=== PATIENT | female | born 1995 | race African-American/Black ===

== ENCOUNTER 2017-03-05 04:31 | Emergency (ER) | payer SELFPAY ==
[~2017-03-05] VITALS: Ht 165.1 cm; Wt 55.3 kg
[~2017-03-05 04:31] MED LIST: RANITIDINE HCL150 MG ORAL
[2017-03-05 04:44] VITALS: BP 123/55
--- NOTE | 2017-03-05 04:59 | Emergency Room Report ---
History of Present Illness General Chief Complaint: Back Pain-No Injury Source: Patient Present Illness HPI Patient presents with complaints of left upper back pain Reports ongoing for the past 2 days Does not recall any situation that started the pain Patient denies any trauma Pain is worse with moving her arm up or down worse with touch Pain is just lateral to the midline spine and lateral to the scapular line Denies any chest pressures of breath denies any pleurisy denies any lower back pain Allergies: Coded Allergies: No Known Allergies (Unverified , 01/17/15) Patient History Past Medical History: see triage record Pertinent Family History: none Last Menstrual Period: THIS MONTH Now: No : 1 Reviewed Nursing Documentation: PMH: Agreed, PSxH: Agreed Nursing Documentation-PMH Past Medical History: No Stated History Review of Systems All Other Systems: negative except mentioned in HPI Physical Exam Vital Signs Date Time Temp Pulse Resp B/P Pulse Ox O2 Delivery O2 Flow Rate FiO2 03/05/17 04:37 98.1 87 20 123/55 98 Sp02 EP Interpretation: reviewed, normal General Appearance: well appearing, no apparent distress Head: normocephalic, atraumatic Eyes: bilateral eye EOMI, bilateral eye PERRL ENT: hearing grossly normal, normal pharynx, TMs + canals normal, uvula midline Neck: full range of motion, supple, no meningismus, no bony tend Respiratory: lungs clear, normal breath sounds, no rhonchi, no respiratory distress, no retraction, no accessory muscle use Cardiovascular #1: normal peripheral pulses, regular rate, rhythm, no edema, no gallop, no JVD, no murmur Gastrointestinal: normal bowel sounds, non tender, soft, no mass, no organomegaly, non-distended, no guarding, no hernia, no pulsatile mass, no rebound Genitourinary: no CVA tenderness Musculoskeletal: other - Patient has discomfort on palpation, just in the rhomboid region on the left side, mid scapular line, no midline tenderness, no obvious rash, patient has full range of motion intact Neurologic: oriented x3, responsive, 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, motor strength/ tone normal, sensory intact Psychiatric: mood/affect normal Skin: normal color, no rash, warm/dry, palpation normal Lymphatic: normal inspection, no adenopathy Medical Decision Making Diagnostic Impression: Primary Impression: Back pain ER Course Notable differentials including but not limited to musculoskeletal dermatological, infectious, pulmonary cardiac pathology entertained Patient's focal exam appears to be very much in line with muscle skeletal pathology Patient is young does not have any other risk factors At this time will have initial conservative outpatient trial Last Vital Signs Date Time Temp Pulse Resp B/P Pulse Ox O2 Delivery O2 Flow Rate FiO2 03/05/17 04:44 98.1 87 20 123/55 98 Status: unchanged Disposition: HOME, SELF-CARE Condition: Stable Referrals: NOT CHOSEN IPA/MD,REFERRING (PCP) Additional Instructions: Patient is provided with the discharge instructions notified to follow up with primary doctor in the next 2-3 days otherwise return to the er with any worsening symptoms. Please note that this report is being documented using [employer] technology. This can lead to erroneous entry secondary to incorrect interpretation by the dictating instrument. VIET TOMLIN D.O. March 05, 2017 04:59
[2017-03-05] MEDS ORDERED: ROBAXIN-750750 MG PO (05:00)
[2017-03-05] MEDS ORDERED: IBUPROFEN600 MG ORAL (05:00)
[2017-03-05 05:03] VITALS: BP 123/55
== END 2017-03-05 05:03 | disposition home or self-care (01) ==
LOC: EMR 04:53
DX: M54.9 Dorsalgia, unspecified (principal)
CPT/HCPCS: 99284